=== PATIENT | female | born 1955 | race Two or more races ===

== ENCOUNTER 2022-11-17 03:40 | Emergency (ER) | payer OTHER ==
[~2022-11-17] VITALS: Ht 154.9 cm; Wt 64.9 kg
== END 2022-11-17 16:42 | disposition home or self-care (01) ==
LOC: ER 03:40
DX: R10.13 Epigastric pain (principal); R11.10 Vomiting, unspecified

== ENCOUNTER 2022-11-24 13:57 | Outpatient (CLI) | payer OTHER, BC | END 2022-11-24 14:07 | disposition home or self-care (01) | LOC: MAMO-SONO 13:57 | PROVIDERS: ATTEND Internal Medicine | DX: Z12.31 Encounter for screening mammogram for malignant neoplasm of breast (principal); N20.0 Calculus of kidney ==

== ENCOUNTER 2022-11-30 08:17 | Outpatient (CLI) | payer OTHER, BC | END 2022-11-30 08:36 | disposition home or self-care (01) | LOC: TOM 08:17 | PROVIDERS: ATTEND Internal Medicine | DX: R91.1 Solitary pulmonary nodule (principal) | CPT/HCPCS: 71270; Q9965 ==

== ENCOUNTER 2023-01-27 08:58 | Emergency (ER) | payer OTHER, BC ==
[~2023-01-27] VITALS: Ht 154.9 cm; Wt 66.7 kg
[2023-01-27] MEDS ORDERED: OMEPRAZOLE20 M1 PO (09:15)
[2023-01-27] MEDS ORDERED: LIPITOR20 MG (09:15)
[2023-01-27] MEDS ORDERED: SYMBICORT 16010.2 GM (09:16)
[2023-01-27] MEDS ORDERED: ADVAIR HFA 115/12 GM IH (09:16)
[2023-01-27] MEDS ORDERED: PROBIOTIC1 EAC4 (09:17)
== END 2023-01-27 16:06 | disposition home or self-care (01) ==
LOC: ER 08:58
DX: K80.80 Other cholelithiasis without obstruction (principal); J45.909 Unspecified asthma, uncomplicated; E78.00 Pure hypercholesterolemia, unspecified